=== PATIENT | male | born 1950 | race Caucasian/White ===

== ENCOUNTER 2022-12-15 10:28 | Emergency (ER) | payer MEDICARE ==
[~2022-12-15] VITALS: Ht 177.8 cm; Wt 109.0 kg
[~2022-12-15 10:28] MED LIST: ENO60SY SC; FINA5TAB4 PO; LIS10T PO; METO25TA93 PO; TAMS0.4C36 PO; TEMA30CA PO; WARF5TAB71 PO
[2022-12-15 11:45] VITALS: BP 177/102
[2022-12-15] MEDS ORDERED: TETANUS-DIPTH-ACEL PERTUSSIS 0.5ML SYR Tdap IM ONE (13:00)
[2022-12-15] MEDS ORDERED: ACET-1158 PO (13:01)
[2022-12-15] MEDS ORDERED: CEPH-510 PO (13:01)
== END 2022-12-15 13:01 | disposition home or self-care (01) ==
LOC: ER 10:28
DX: S01.81XA Laceration without foreign body of other part of head, initial encounter (principal); F41.9 Anxiety disorder, unspecified; K21.9 Gastro-esophageal reflux disease without esophagitis; I10 Essential (primary) hypertension; W18.09XA Striking against other object with subsequent fall, initial encounter; Y93.89 Activity, other specified; Y92.098 Other place in other non-institutional residence as the place of occurrence of the external cause; Y99.8 Other external cause status
CPT/HCPCS: 12013; 70450; 72125; 90715; 93005

== ENCOUNTER 2024-03-09 10:12 | Emergency (ER) | payer MEDICARE ==
[~2024-03-09] VITALS: Ht 180.3 cm; Wt 107.6 kg
[~2024-03-09 10:12] MED LIST changes: +ACET500T58 PO; +CEPH-510 PO; +WARF-66 PO; -WARF5TAB71 PO
[2024-03-09 13:20] VITALS: BP 148/91; PULSE 66; RESP 18; TEMP 98; O2SAT 95
[2024-03-09] MEDS ORDERED: HYDR-4902 PO (14:10)
== END 2024-03-09 14:22 | disposition home or self-care (01) ==
LOC: ER 10:12
DX: S20.212A Contusion of left front wall of thorax, initial encounter (principal); R07.81 Pleurodynia; M54.6 Pain in thoracic spine; F41.9 Anxiety disorder, unspecified; K21.9 Gastro-esophageal reflux disease without esophagitis; I10 Essential (primary) hypertension; Z79.899 Other long term (current) drug therapy; V19.9XXA Pedal cyclist (driver) (passenger) injured in unspecified traffic accident, initial encounter; Y93.89 Activity, other specified; Y92.89 Other specified places as the place of occurrence of the external cause; Y99.8 Other external cause status
CPT/HCPCS: 71101; 72070

== ENCOUNTER 2024-07-16 06:18 | Emergency (ER) | payer MEDICARE ==
[~2024-07-16] VITALS: Ht 177.8 cm; Wt 103.8 kg
[~2024-07-16 06:18] MED LIST changes: +HYDR-4902 PO; -TAMS0.4C36 PO; +TAMS0.4C39 PO
[2024-07-16 07:34] VITALS: BP 148/93; TEMP 98.1
[2024-07-16] MEDS: HYDROcodone-ACET 5/325MG TAB PO ONE (07:42)
[2024-07-16 07:55] VITALS: PULSE 83; RESP 16; O2SAT 96
[2024-07-16] MEDS ORDERED: PRED20TA2 PO (08:50)
[2024-07-16] MEDS ORDERED: HYDR-4902 PO (08:50)
== END 2024-07-16 09:01 | disposition home or self-care (01) ==
LOC: ER 06:18
DX: M50.10 Cervical disc disorder with radiculopathy, unspecified cervical region (principal); R51.9 Headache, unspecified; I10 Essential (primary) hypertension; K21.9 Gastro-esophageal reflux disease without esophagitis; F41.9 Anxiety disorder, unspecified
CPT/HCPCS: 70450; 72125